=== PATIENT | male | born 1970 ===

== ENCOUNTER → 2016-04-29 | Outpatient (CLI) | payer OTHER ==
--- NOTE | 2016-04-30 20:17 | RESP ---
DATE OF SERVICE: 04/29/2016 ATTENDING PHYSICIAN: I am not sure. The patient underwent full pulmonary function testing dated 04/29/2016. The FEV1 to FVC ratio was 80%. FEV1 was 89% of predicted at 3.97 liters. FVC was 87% of predicted at 4.96 liters. Total lung capacity was preserved. Diffusion capacity was elevated. IMPRESSION: 1. No evidence of obstructive lung disease. 2. No evidence of restrictive lung disease. CHANDLER HICKS MD DR: KAVON/natanael JOB#: [id number] / [id number]
== END | disposition home or self-care (01) ==
LOC: EEVIPCON 08:00 → PF 08:32
PROVIDERS: ATTEND Physician Assistant Medical
DX: J44.9 Chronic obstructive pulmonary disease, unspecified (principal)
CPT/HCPCS: 94010; 94729